=== PATIENT | male | born 1950 | race Caucasian/White ===

== ENCOUNTER 2018-07-17 07:18 | Day surgery (SDC) | payer MEDICARE, OTHER ==
[2018-07-17 07:50] VITALS: BMI 22.6
[2018-07-17] MEDS ORDERED: Lactated Ringer's 500 ML IV ONE (08:02)
[2018-07-17] MEDS ORDERED: Propofol 10 mg/ml Inj (20 ML) ONE (08:27)
[2018-07-17 09:15] VITALS: RESP 18; TEMP 97.3; O2SAT 96
[2018-07-17 10:19] VITALS: BP 146/98; PULSE 74
== END 2018-07-17 10:30 | disposition home or self-care (01) ==
LOC: H.ENDO 07:18
PROVIDERS: ATTEND Internal Medicine Gastroenterology
DX: R19.4 Change in bowel habit (principal); F41.9 Anxiety disorder, unspecified; K64.8 Other hemorrhoids; K57.30 Diverticulosis of large intestine without perforation or abscess without bleeding; K31.89 Other diseases of stomach and duodenum; K29.50 Unspecified chronic gastritis without bleeding; R10.13 Epigastric pain
CPT/HCPCS: 43239; 45378; 88305; J2001; J2704; J7120